=== PATIENT | female | born 1990 | race Caucasian/White ===

== ENCOUNTER 2017-03-11 22:14 | Emergency (ER) | payer BC ==
[~2017-03-11] VITALS: Ht 162.6 cm; Wt 88.3 kg
[2017-03-11 22:29] VITALS: BP 131/73; PULSE 96; RESP 18; TEMP 98.4; O2SAT 98
[2017-03-11] MEDS ORDERED: DICL75TA PO (22:40)
[2017-03-11] MEDS ORDERED: BACT800T5 PO (22:40)
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
--- NOTE | 2017-03-11 23:09 | PD ---
Physical Exam Date Seen by Provider: Mar 11, 2017 Time Seen by Provider: 23:05 Narrative Accepted in transfer care GENERAL: Well-developed well-nourished female in no acute distress no respiratory distress SKIN: Warm and dry. Attention left fourth digit shows soft tissue swelling and ecchymosis to the distal pad of the left fourth digit patient has intact flexion extension and sensation no other injury identified no subungual hematoma identified superficial abrasion at the cuticle of the digit bleeding controlled. MUSCULOSKELETAL: No cyanosis, or edema. Data Data Last Documented VS Vital Signs Date Time Temp Pulse Resp B/P (MAP) Pulse Ox O2 Delivery O2 Flow Rate FiO2 03/11/17 22:29 98.4 96 18 131/73 (92) 98 Orders Orders Finger ([id number]) (03/11/17 ) Splint Or Brace Apply/Monitor (03/11/17 23:09) Sulfamet-Trimeth Ds 800-160 Mg (Bactrim (03/11/17 23:15) MDM Medical Record Reviewed: Yes Supervised Visit with TOYA: Yes Interpretation(s) Left ring finger/fourth finger x-ray shows distal tuft fracture without significant displacement, minimal displacement Differential Diagnosis Crush injury, fracture, contusion, neurovascular tendon injury, puncture wound, osteomyelitis Narrative Course 26-year-old otherwise healthy female has a crush injury to the left fourth digit. Patient is right-handed. Imaging is consistent with a distal tuft fracture. Patient has soft tissue swelling and ecchymosis without of the distal pad without evidence of a subungual hematoma. Patient has intact range of motion at his sensation of the digit. Patient will be treated with an aluminum splint. Tetanus status is less than one year ago and current. Patient will be started on antibiotic as a friend punctured the site trying to alleviate the soft tissue swelling associated with a hematoma prior to arrival to the emergency department. Patient is aware of imaging results consistent with distal tuft fracture with minimal displacement. Patient is encouraged to take antibiotic as prescribed in view of recent post injury puncture wound. Patient will be given first dose of antibiotic in the emergency department. Diagnosis Primary Impression: Closed fracture of tuft of distal phalanx of finger Additional Impression: Puncture wound Referrals: MERRY CAMARGO D.O. (PCP) call for appointment Patient Instructions: General Instructions Departure Forms: Tests/Procedures Additional Instruction: Keep site clean and dry Wear splint for support Follow-up with primary care provider/hand surgeon Return to the emergency department for any concerns or change in condition Complete course of antibiotic as prescribed Use ibuprofen/Motrin/Advil per package directions for only [id number] instructions as needed OR may use prescription diclofenac for pain management Scripts Sulfamethoxazole-Trimethoprim (Bactrim DS) 800-160 Mg Tab 1 TAB PO BID for Infection for 7 Days, TAB 0 Refills Prov: Kim Duke MD 03/11/[address] (Diclofenac Sodium DR) 75 Mg Tabdr 75 MG PO BID Y for PAIN SCALE 1 TO 10, #20 TAB 0 Refills Prov: Kim Duke MD 03/11/17 Disposition: 01 DISCHARGE HOME Condition: Stable Kim Duke MD Mar 11, 2017 23:09
[2017-03-11] MEDS ORDERED: SULFAMETHOXAZOLE-TRIMETHOPRIM DS 800-160 MG TAB PO ONE (23:15)
[2017-03-11 23:20] VITALS: BP 128/76
== END 2017-03-11 23:22 | disposition home or self-care (01) ==
LOC: PHEFT 22:14
DX: S62.635A Displaced fracture of distal phalanx of left ring finger, initial encounter for closed fracture (principal); S61.235A Puncture wound without foreign body of left ring finger without damage to nail, initial encounter; F17.210 Nicotine dependence, cigarettes, uncomplicated; W23.1XXA Caught, crushed, jammed, or pinched between stationary objects, initial encounter; Y92.810 Car as the place of occurrence of the external cause; Z88.0 Allergy status to penicillin
CPT/HCPCS: 29130; 73140